=== PATIENT | female | born 1965 | race Caucasian/White ===

== ENCOUNTER 2019-04-12 14:00 | Emergency (ER) | payer BC ==
[2019-04-12 14:02] VITALS: BP 143/75; PULSE 75
[2019-04-12] MEDS ORDERED: Sodium Chloride 0.9% 1,000 ML IV ONE (14:19)
[2019-04-12] MEDS ORDERED: Sodium Chloride 0.9% 10 ML Syringe FLUSH PRN (14:19)
[2019-04-12] MEDS ORDERED: Ondansetron 4 MG/2 ML SDV IVPUSH ONE (14:20)
[2019-04-12] MEDS ORDERED: Ketorolac 30 MG/ML SDV IVPUSH ONE (14:20)
[2019-04-12] MEDS ORDERED: Diazepam 5 MG Tab PO ONE (14:20)
[2019-04-12] MEDS ORDERED: SUMAtriptan 6 MG/0.5 ML SDV SUBCUT ONE (14:20)
[2019-04-12] MEDS ORDERED: SODIUM CHLORIDE 0.9% IV ONE (14:21)
[2019-04-12] MEDS ORDERED: DIHYDROERGOTAMINE IV ONE (14:21)
[2019-04-12] MEDS ORDERED: Metoclopramide 10 MG/2 ML SDV IVPUSH ONE (14:29)
[2019-04-12 14:52] LABS: CHLORIDE,CL 104 mmol/L (98-107); SODIUM,NA 140 mmol/L (136-145)
[2019-04-12] MEDS ORDERED: Dihydroergotamine 1 MG/ML SDV IM ONE (15:15)
[2019-04-12] MEDS ORDERED: Metoclopramide 10 MG/2 ML SDV IM ONE (15:15)
[2019-04-12] MEDS ORDERED: Ketorolac 60 MG/2 ML SDV IM ONE (15:38)
[2019-04-12] MEDS ORDERED: fentaNYL 100 MCG/2 ML SDV IM ONE ×2 (15:39→16:27)
--- NOTE | 2019-04-12 15:47 | EDM.PDOC ---
ED HPI GENERAL MEDICAL PROBLEM - General Chief Complaint: Headache Stated Complaint: Headache Time Seen by Provider: 04/12/19 14:12 Source of Information: Reports: Patient History Limitations: Reports: No Limitations - History of Present Illness INITIAL COMMENTS - FREE TEXT/NARRATIVE: Patient comes to ER with left sided migraine that started three days ago. Photophobia/nausea. Had usual aura, describes seeing bright spots in both eyes when headache began. No change in character of migraine. Reports not having one in a long time. Abortive meds at home did not help. Seen in clinic yesterday and received IM injections but they did not help. No other new complaints/changes. Headache Pain Score (Numeric/FACES): 9 - Related Data Allergies Allergy/AdvReac Type Severity Reaction Status Date / Time erythromycin base Allergy Indigestion Verified 04/12/19 15:45 [Erythromycin Base] Home Meds: Home Meds Levothyroxine Sodium [Synthroid] 125 mcg PO DAILY 06/30/13 [History] Topiramate [Topamax] 50 mg PO DAILY 04/27/15 [History] Butalbit/Acetamin/Caff/Codeine [Hxuwwb-Zmhngtgjbck-Ablq-Codein] 1 cap PO ASDIRECTED 04/12/19 [History] Cyclobenzaprine [Flexeril] 10 mg PO BID PRN 04/12/19 [History] Tobramycin/Dexamethasone [Tobradex Eye Ointment] 1 drop EYEBOTH ASDIRECTED 04/12 [History] Varenicline Tartrate [Chantix] 1 each PO ASDIRECTED 04/12/19 [History] Venlafaxine [Venlafaxine HCl ER] 150 mg PO DAILY 04/12/19 [History] Past Medical History HEENT History: Reports: Impaired Vision Musculoskeletal History: Reports: RA Neurological History: Reports: Migraines Psychiatric History: Reports: Depression Social & Family History - Tobacco Use Smoking Status *Q: Never Smoker Second Hand Smoke Exposure: No - Caffeine Use Caffeine Use: Reports: None - Recreational Drug Use Recreational Drug Use: No - Living Situation & Occupation Living situation: Reports: with Significant Other Occupation: Employed ED ROS GENERAL - Review of Systems Review Of Systems: See Below Constitutional: Reports: Decreased Appetite HEENT: Reports: No Symptoms Respiratory: Reports: No Symptoms Cardiovascular: Reports: No Symptoms GI/Abdominal: Reports: Nausea : Reports: No Symptoms Musculoskeletal: Reports: No Symptoms Skin: Reports: No Symptoms Neurological: Reports: Headache. Denies: Confusion, Paresthesia, Difficulty Walking, Change in Speech, Gait Disturbance Psychiatric: Reports: No Symptoms ED EXAM, GENERAL - Physical Exam Exam: See Below Exam Limited By: No Limitations General Appearance: Alert, Other (appears fatigued, sitting in dark room) Eye Exam: Bilateral Eye: EOMI, PERRL Nose: No: Nasal Deformity, Nasal Swelling, Nasal Drainage Throat/Mouth: Normal Lips, Normal Voice, No Airway Compromise Head: Atraumatic, Normocephalic Neck: Supple Respiratory/Chest: No Respiratory Distress Extremities: Normal Range of Motion Neurological: Alert, Oriented, Normal Gait Psychiatric: Normal Affect, Normal Mood Skin Exam: Warm, Dry, Intact, Normal Color Course - Vital Signs Last Recorded V/S: Last Vital Signs Temp 36.8 C 04/12/19 14:00 Pulse 75 04/12/19 14:00 Resp 17 04/12/19 14:00 BP 143/75 H 04/12/19 14:00 Pulse Ox 100 04/12/19 14:00 - Orders/Labs/Meds Labs: Laboratory Tests 04/12/19 04/12/19 Range/Units 14:30 14:30 WBC 10.1 (4.0-10.2) K/uL RBC 4.42 (3.77-5.09) M/uL Hgb 12.9 (11.7-15.5) g/dL Hct 40.5 (34.0-46.0) % MCV 91.6 (84.0-98.0) fL MCH 29.2 (28.2-33.3) pg MCHC 31.9 (31.7-36.0) g/dL RDW 13.5 (11.2-14.1) % Plt Count 310 (150-350) K/uL Neut % (Auto) 57.9 (45.0-80.0) % Lymph % (Auto) 31.6 (10.0-50.0) % [place] % (Auto) 7.7 (2.0-14.0) % Eos % (Auto) 2.4 (0.0-5.0) % Baso % (Auto) 0.4 (0.0-2.0) % Neut # (Auto) 5.83 (1.40-7.00) K/uL Lymph # (Auto) 3.18 (0.50-3.50) K/uL [place] # (Auto) 0.78 (0.00-1.00) K/uL Eos # (Auto) 0.24 (0.00-0.50) K/uL Baso # (Auto) 0.04 (0.00-0.20) K/uL Sodium 140 (136-145) mmol/L Potassium 3.7 (3.5-5.1) mmol/L Chloride 104 (98-107) mmol/L Carbon Dioxide 27.9 (21.0-32.0) mmol/L BUN 12 (7-18) mg/dL Creatinine 0.77 (0.51-1.17) mg/dL Est Cr Clr Drug Dosing 74.27 mL/min Estimated GFR (MDRD) > 60 mL/min Glucose 106 (74-106) mg/dL Calcium 8.9 (8.5-10.1) mg/dL Magnesium 2.1 (1.8-2.4) mg/dL Total Bilirubin 0.2 (0.2-1.0) mg/dL AST 36 (15-37) U/L ALT 36 (12-78) U/L Alkaline Phosphatase 112 (46-116) IU/L Total Protein 7.4 (6.4-8.2) g/dL Albumin 3.8 (3.4-5.0) g/dL Meds: Medications Discontinued Medications Generic Name Dose Route Start Last Admin Trade Name Freq PRN Reason Stop Dose Admin Diazepam 5 mg 04/12/19 14:20 04/12/19 14:47 Valium. PO 04/12/19 14:21 5 mg ONETIME ONE Administration Fentanyl 100 mcg 04/12/19 15:39 Sublimaze IM 04/12/19 15:40 ONETIME ONE Sodium Chloride 1,000 mls @ 999 mls/hr 04/12/19 14:19 Normal Saline IV 04/12/19 15:19 .BOLUS ONE Dihydroergotamine Mesylate 1 101 mls @ 200 mls/hr 04/12/19 14:21 mg/ Sodium Chloride IV 04/12/19 14:51 ONETIME ONE Ketorolac Tromethamine 30 mg 04/12/19 14:20 Toradol IVPUSH 04/12/19 14:21 ONETIME ONE Ketorolac Tromethamine 60 mg 04/12/19 15:38 Toradol IM 04/12/19 15:39 ONETIME ONE Metoclopramide HCl 10 mg 04/12/19 14:29 Reglan IVPUSH 04/12/19 14:30 ONETIME ONE Metoclopramide HCl 10 mg 04/12/19 15:15 Reglan IM 04/12/19 15:16 ONETIME ONE Ondansetron HCl 4 mg 04/12/19 14:20 Zofran IVPUSH 04/12/19 14:21 ONETIME ONE Sodium Chloride 10 ml 04/12/19 14:19 Saline Flush FLUSH ASDIRECTED PRN Keep Vein Open Sumatriptan Succinate 6 mg 04/12/19 14:20 04/12/19 14:45 Imitrex SUBCUT 04/12/19 14:21 6 mg ONETIME ONE Administration - Re-Assessments/Exams Free Text/Narrative Re-Assessment/Exam: 04/12/19 15:46 Unable to establish IV due to very poor veins. CBC/Chem/MG unremarkable. PO Valium, IM Toradol/Reglan ordered. Imitrex also given. Fentanyl IM. Patient allowed to rest. Free Text/Narrative Re-Assessment/Exam: 04/12/19 16:27 Pain improved to 5. Single additional dose of pain medicine given. Plan is to discharge patient home and let her rest. She is to follow up as needed. Consider DHE tomorrow if pain persists and patient returns. Departure - Departure Time of Disposition: 16:50 Disposition: Home, Self-Care 01 Condition: Good Clinical Impression: Migraine - Discharge Information *PRESCRIPTION DRUG MONITORING PROGRAM REVIEWED*: Not Applicable *COPY OF PRESCRIPTION DRUG MONITORING REPORT IN PATIENT PAULO: Not Applicable Instructions: Migraine Headache, [id number] Referrals: Tamar Joshi NP [Primary Care Provider] - Additional Instructions: Rest. Stay hydrated. Follow up as needed if pain returns or other problems develop.
== END 2019-04-12 16:35 | disposition home or self-care (01) ==
LOC: LL.ED 14:00
DX: G43.909 Migraine, unspecified, not intractable, without status migrainosus (principal); F32.9 Major depressive disorder, single episode, unspecified; Z88.1 Allergy status to other antibiotic agents; Z79.899 Other long term (current) drug therapy
CPT/HCPCS: 36415; 80053; 83735; 85025; 96372; 99283; A9270; J1885; J2765; J3010; J3030

== ENCOUNTER 2019-08-27 12:44 | Emergency (ER) | payer BC ==
[2019-08-27 12:53] VITALS: BP 123/83; PULSE 69
[2019-08-27] MEDS ORDERED: Sodium Chloride 0.9% 10 ML Syringe FLUSH PRN (13:05)
[2019-08-27] MEDS ORDERED: Ketorolac 30 MG/ML SDV IVPUSH ONE (13:09)
[2019-08-27] MEDS ORDERED: Sodium Chloride 0.9% 1,000 ML IV ONE (13:09)
[2019-08-27] MEDS ORDERED: Ondansetron 4 MG/2 ML SDV IVPUSH ONE (13:10)
[2019-08-27] MEDS ORDERED: diphenhydrAMINE 50 MG/ML SDV IVPUSH ONE (13:10)
[2019-08-27] MEDS ORDERED: Prochlorperazine 10 MG in Sodium Chloride 0.9% 100 ML IV ONE (13:18)
--- NOTE | 2019-08-27 13:22 | EDM.PDOC ---
ED HPI GENERAL MEDICAL PROBLEM - General Chief Complaint: Headache Stated Complaint: migraine Time Seen by Provider: 08/27/19 13:09 Source of Information: Reports: Patient History Limitations: Reports: No Limitations - History of Present Illness INITIAL COMMENTS - FREE TEXT/NARRATIVE: Headache for past 3 days Has hx/o migraines Usual home meds did not work BAUMANN is global Some photophobia Onset: Gradual Duration: Day(s):, Getting Worse Location: Reports: Head Quality: Reports: Throbbing Severity: Moderate Associated Symptoms: Reports: Headaches Treatments WELLNESS COORDINATOR: Reports: Other (see below) Headache Pain Score (Numeric/FACES): 8 - Related Data Allergies Allergy/AdvReac Type Severity Reaction Status Date / Time erythromycin base Allergy Indigestion Verified 08/27/19 12:45 [Erythromycin Base] Home Meds: Home Meds Levothyroxine Sodium [Synthroid] 125 mcg PO DAILY 06/30/13 [History] Topiramate [Topamax] 50 mg PO BEDTIME 04/27/15 [History] Butalbit/Acetamin/Caff/Codeine [Izoonb-Etoedqeahsn-Ejhu-Codein] 1 cap PO ASDIRECTED 04/12/19 [History] Cyclobenzaprine [Flexeril] 10 mg PO BEDTIME 04/12/19 [History] Venlafaxine [Venlafaxine HCl ER] 300 mg PO BEDTIME 04/12/19 [History] Adalimumab [Humira Pen] 40 mg SUBCUT ASDIRECTED 08/27/19 [History] Ibuprofen 400 mg PO Q6H PRN 08/27/19 [History] SUMAtriptan Succinate [Imitrex] 25 mg PO ASDIRECTED PRN 08/27/19 [History] Past Medical History HEENT History: Reports: Impaired Vision Musculoskeletal History: Reports: RA Neurological History: Reports: Migraines Psychiatric History: Reports: Depression Endocrine/Metabolic History: Reports: Hypothyroidism Dermatologic History: Reports: Other (See Below) Other Dermatologic History: arthritis with skin involvement - Past Surgical History GI Surgical History: Reports: Colon, Colonoscopy, Other (See Below) Other GI Surgeries/Procedures: colon surgery in november 2018 for resection and tumor removal. Social & Family History - Caffeine Use Caffeine Use: Reports: None - Living Situation & Occupation Living situation: Reports: with Significant Other Occupation: Employed ED ROS GENERAL - Review of Systems Review Of Systems: See Below Respiratory: Reports: No Symptoms Cardiovascular: Reports: No Symptoms GI/Abdominal: Reports: No Symptoms Musculoskeletal: Reports: No Symptoms Neurological: Reports: Headache - Physical Exam Exam: See Below Exam Limited By: No Limitations General Appearance: Alert, WD/WN, Moderate Distress Eye Exam: Bilateral Eye: EOMI, Normal Fundi, Normal Inspection, PERRL Neuro Exam (Abbreviated): Alert, Oriented, Normal Cognition, No Motor/Sensory Deficits Course - Vital Signs Last Recorded V/S: Last Vital Signs Temp 98.3 F 08/27/19 12:52 Pulse 69 08/27/19 12:52 Resp 16 08/27/19 12:52 BP 123/83 08/27/19 12:52 Pulse Ox 100 08/27/19 12:52 - Orders/Labs/Meds Orders: Active Orders 24 hr Category Date Time Status Prochlorperazine [Compazine] 10 mg Med 08/27/19 13:18 Ordered Sodium Chloride 0.9% [Normal Saline] 100 ml IV ONETIME Sodium Chloride 0.9% [Normal Saline] 1,000 ml Med 08/27/19 13:09 Ordered IV .BOLUS Medication Orders Sodium Chloride (Normal Saline) 1,000 mls @ 1,000 mls/hr IV .BOLUS ONE Stop: 08/27/19 14:08 Meds: Medications Generic Name Dose Route Start Last Admin Trade Name Freq PRN Reason Stop Dose Admin Sodium Chloride 1,000 mls @ 1,000 mls/hr 08/27/19 13:09 Normal Saline IV 08/27/19 14:08 .BOLUS ONE Discontinued Medications Generic Name Dose Route Start Last Admin Trade Name Freq PRN Reason Stop Dose Admin Diphenhydramine HCl 50 mg 08/27/19 13:10 Benadryl IVPUSH 08/27/19 13:11 ONETIME ONE Ketorolac Tromethamine 30 mg 08/27/19 13:09 Toradol IVPUSH 08/27/19 13:10 ONETIME ONE Ondansetron HCl 4 mg 08/27/19 13:10 Zofran IVPUSH 08/27/19 13:11 ONETIME ONE - Re-Assessments/Exams Free Text/Narrative Re-Assessment/Exam: 08/27/19 13:20 Pt given IVF, IV Toradol, IV Zofran and IV Compazine in ER Departure - Departure Time of Disposition: 14:30 Disposition: Home, Self-Care 01 Clinical Impression: Migraine - Discharge Information *PRESCRIPTION DRUG MONITORING PROGRAM REVIEWED*: Not Applicable *COPY OF PRESCRIPTION DRUG MONITORING REPORT IN PATIENT PAULO: Not Applicable Instructions: Recurrent Migraine Headache, [id number] Referrals: Bev Bardales PA-C [Primary Care Provider] - Additional Instructions: Follow up in clinic Sepsis Event Note - Evaluation Sepsis Screening Result: No Definite Risk - Focused Exam Vital Signs: Vital Signs Temp Pulse Resp BP Pulse Ox 08/27/19 12:52 98.3 F 69 16 123/83 100 Date Exam was Performed: 08/27/19 Time Exam was Performed: 13:18 - My Orders Last 24 Hours: My Active Orders 08/27/19 13:09 Sodium Chloride 0.9% [Normal Saline] 1,000 ml IV .BOLUS 08/27/19 13:18 Prochlorperazine [Compazine] 10 mg Sodium Chloride 0.9% [Normal Saline] 100 ml IV ONETIME - Assessment/Plan Last 24 Hours: My Active Orders 08/27/19 13:09 Sodium Chloride 0.9% [Normal Saline] 1,000 ml IV .BOLUS 08/27/19 13:18 Prochlorperazine [Compazine] 10 mg Sodium Chloride 0.9% [Normal Saline] 100 ml IV ONETIME
== END 2019-08-27 14:57 | disposition home or self-care (01) ==
LOC: LL.ED 12:44
DX: G43.909 Migraine, unspecified, not intractable, without status migrainosus (principal); Z88.1 Allergy status to other antibiotic agents; Z79.899 Other long term (current) drug therapy
CPT/HCPCS: 96365; 96375; 99283-25; J0780; J1885; J2405; J7030; J7050

== ENCOUNTER 2022-03-24 16:45 | Emergency (ER) | payer BC ==
[2022-03-24 16:49] VITALS: BP 140/65; PULSE 83
[2022-03-24] MEDS ORDERED: Metoclopramide 10 MG/2 ML SDV IVPUSH ONE (17:29)
[2022-03-24] MEDS ORDERED: Ketorolac 30 MG/ML SDV IM ONE (17:29)
[2022-03-24] MEDS ORDERED: diphenhydrAMINE 50 MG/ML SDV IVPUSH ONE (17:29)
[2022-03-24] MEDS: Sodium Chloride 0.9% 10 ML Syringe FLUSH PRN ×2 (17:35→18:20)
[2022-03-24] MEDS ORDERED: Haloperidol Lactate 5 MG/ML SDV IVPUSH ONE (18:11)
[2022-03-24] MEDS ORDERED: Dexamethasone 10 MG/ML SDV IVPUSH ONE (18:13)
== END 2022-03-24 18:32 | disposition home or self-care (01) ==
LOC: LL.ED 16:45
DX: G43.109 Migraine with aura, not intractable, without status migrainosus (principal); E03.9 Hypothyroidism, unspecified; F17.210 Nicotine dependence, cigarettes, uncomplicated; Z88.1 Allergy status to other antibiotic agents; Z79.899 Other long term (current) drug therapy
CPT/HCPCS: 96372; 96374; 96375; 99283-25; J1100; J1200; J1630; J1885; J2765; J3490